=== PATIENT | male | born 1940 | race Caucasian/White ===

== ENCOUNTER 2017-02-25 17:33 | Emergency (ER) | payer OTHER, MEDICARE ==
[2017-02-25 17:42] VITALS: PULSE 68; RESP 20; TEMP 98.2; O2SAT 93
[2017-02-25] MEDS ORDERED: PROPARACAINE 0.5% 15 ML OPHT DROP OP ONE (17:49)
[2017-02-25] MEDS ORDERED: FLUORESCEIN SODIUM 1 MG STRIP OP ONE (17:53)
[2017-02-25] MEDS ORDERED: OFLOXACIN 0.3% SOLN PREPACK OPHT.BTL TAKEHOME ONE (18:01)
--- NOTE | 2017-02-25 18:01 | EDPHY ---
H & P Stated Complaint: pain/redness l eye since yesterday morning//no visual changes Time Seen by Provider: 02/25/17 17:48 HPI/ROS: CHIEF COMPLAINT: Red irritated left eye HISTORY OF PRESENT ILLNESS: Patient is a 76-year-old man with a history of nearsightedness who comes to the emergency department complaining of erythematous conjunctiva in his left eye. No discharge. He states that it began yesterday morning. He thinks that his BiPAP machine slipped and blue air into his eye. He states that it is happen before. He has not had any fever. He has normal vision. He went to the urgent care at [facility] and they sent him here to rule out retinal detachment. REVIEW OF SYSTEMS: Constitutional: denies: chills, fever, recent illness, recent injury EENTM: See HPI Respiratory: denies: cough, shortness of breath Cardiac: denies: chest pain, irregular heart rate, lightheadedness, palpitations Gastrointestinal/Abdominal: denies: abdominal pain, diarrhea, nausea, vomiting, blood streaked stools Genitourinary: denies: dysuria, frequency, hematuria, pain Musculoskeletal: denies: joint pain, muscle pain Skin: denies: lesions, rash, jaundice, bruising Neurological: denies: headache, numbness, paresthesia, tingling, dizziness, weakness Hematologic/Lymphatic: denies: blood clots, easy bleeding, easy bruising Immunologic/allergic: denies: HIV/AIDS, transplant EXAM: GENERAL: Well-appearing, well-nourished and in no acute distress. HEAD: Atraumatic, normocephalic. EYES: Pupils equal round and reactive to light, extraocular movements intact, right injected conjunctiva, no significant discharge. Visual acuity 15/20 in each eye with glasses on. Retina well visualized and no visible detachment or bleeding. Jesse-Pen measurements 20. ENT: TMs normal, nares patent, oropharynx clear without exudates. Moist mucous membranes. NECK: Normal range of motion, supple without lymphadenopathy or JVD. LUNGS: Breath sounds clear to auscultation bilaterally and equal. No wheezes rales or rhonchi. HEART: Regular rate and rhythm without murmurs, rubs or gallops. ABDOMEN: Soft, nontender, normoactive bowel sounds. No guarding, no rebound. No masses appreciated. BACK: No CVA tenderness, no spinal tenderness, step-offs or deformities EXTREMITIES: Normal range of motion, no pitting or edema. No clubbing or cyanosis. NEUROLOGICAL: Cranial nerves II through XII grossly intact. Normal speech, normal gait. 5/5 strength, normal movement in all extremities, normal sensation PSYCH: Normal mood, normal affect. SKIN: Warm, dry, normal turgor, no visible rashes or lesions. Source: Patient Exam Limitations: No limitations - Personal History Current Tetanus/Diphtheria Vaccine: Yes - Medical/Surgical History Hx Asthma: No Hx Chronic Respiratory Disease: No Hx Diabetes: No Hx Cardiac Disease: No Hx Renal Disease: No Hx Cirrhosis: No Hx Alcoholism: No Hx HIV/AIDS: No Hx Splenectomy or Spleen Trauma: No Other PMH: htn/l hip replacement - Family History Significant Family History: No pertinent family hx - Social History Smoking Status: Never smoked Alcohol Use: Sober Drug Use: None Constitutional: Initial Vital Signs Temperature (C) 36.8 C 02/25/17 17:39 Heart Rate 68 02/25/17 17:39 Respiratory Rate 20 02/25/17 17:39 Blood Pressure 162/107 H 02/25/17 17:39 O2 Sat (%) 93 02/25/17 17:39 O2 Delivery Mode Room Air Allergies/Adverse Reactions: No Known Allergies Allergy (Unverified 02/25/17 17:37) Home Medications: Medication Instructions Recorded Ambien 02/25/17 Htn Med 02/25/17 Medical Decision Making ED Course/Re-evaluation: The patient does not have any signs of retinal detachment. His vision is intact at baseline. His presentation is consistent with conjunctivitis although there has been no discharge. He is convinced it is trauma from his BiPAP machine. I will have her start him on Ocuflox. He understands and agrees with this plan. I will give him Ophthalmology for follow-up as well. Differential Diagnosis: Partial list of the Differential diagnosis considered include but were not limited to; conjunctivitis, trauma, abrasion and although unlikely based on the history and physical exam, I also considered glaucoma, retinal detachment, traumatic iritis, the central visual retinal artery occlusion. I discussed these differential diagnoses and the plan with the patient as well as the usual and expected course. The patient understands that the diagnosis is provisional and that in medicine we are not always correct and that further workup is often warranted. Usual and customary warnings were given. All of the patient's questions were answered. The patient was instructed to return to the emergency department should the symptoms at all worsen or return, otherwise to followup with the physician as we discussed. - Data Points Medications Given: Discontinued Medications Ofloxacin (Ocuflox 0.3% Opht Drops Prepack) 1 btl TAKEHOME EDNOW ONE Stop: 02/25/17 18:02 Last Admin: 02/25/17 18:14 Dose: 1 btl Proparacaine HCl (Alcaine 0.5%) 1 drops OP EDNOW ONE Stop: 02/25/17 17:50 Last Admin: 02/25/17 18:01 Dose: 1 drop Departure - Departure Disposition: Home, Routine, Self-Care Clinical Impression: Acute conjunctivitis of left eye Qualifiers: Acute conjunctivitis type: unspecified Qualified Code(s): H10.32 - Unspecified acute conjunctivitis, left eye Condition: Fair Instructions: Ofloxacin (Into the eye), Conjunctivitis (ED) Referrals: YASMIN MENDOZA [Other] - As per Instructions Myrna Alvares MD [Medical Doctor] - As per Instructions
[2017-02-25 18:29] VITALS: BP 150/99
== END 2017-02-25 18:30 | disposition home or self-care (01) ==
DX: H10.32 Unspecified acute conjunctivitis, left eye (principal); I10 Essential (primary) hypertension